=== PATIENT | male | born 2005 | race Caucasian/White ===

== ENCOUNTER 2023-11-17 19:07 | Emergency (ER) | payer BC, SELFPAY ==
[2023-11-17 19:13] VITALS: BP 147/106; BMI 22.1
--- NOTE | 2023-11-17 20:33 | ED.GENMED ---
History of Present Illness
General
Chief Complaint: Self Inflicted Injury
Source: patient and family
Time Seen by Provider: 11/17/23 19:25
Travel History
Have you had any contact with someone who has COVID-19?: No
Do you have any symptoms of coronavirus? Fever > 100 degrees, chills, cough, shortness of breath, sore throat, loss of taste or smell, muscle aches, or headache?: No
History of Present Illness
History of Present Illness:
18-year-old male presents to the emergency room for evaluation after a suicide attempt. Patient states that he attempted to commit suicide by hanging. He tied a noose with a shoestring which was attached to a ceiling fan. Patient was standing and
then squatted down to strangle himself. After a couple minutes he stood up. He denies loss of consciousness. He does have discomfort in the area where the noose was around his neck.
Phy Exam
Physical Exam
Physical Exam:
General: Awake, Alert, Oriented X3. No acute distress.
Vitals: unremarkable
Head: Atraumatic
Eyes: Pupils equal, EOMI
Throat: Airway intact, no exudates, no stridor
Neck: Trachea midline, no crepitance, ligature paulie noted around his neck
Lungs: Clear and equal b/l
Heart: Regular rate, no murmurs
Abd: Soft, Nontender, No pulsatile mass
Neuro: Nonfocal
Skin: Warm, dry, no rash
Extremities: pulses equal b/l, no edema
Course
Orders/Labs/Results
Orders:
Orders
11/17/23 19:20
Case Management Consult ONCE
Case Management Consult: Suicide Risk
11/17/23 19:51
Crisis Consult Urgent
Reason for Consult: suicide attempt
11/17/23 20:30
CT Angio Neck W/Wo Iv Contrast [CT Neck Angio W/wo Iv Contrast] Urgent
Comment:
Reason For Exam: suicide attempt by hanging
11/17/23 20:41
Acetaminophen Urgent
Alcohol Urgent
Complete Blood Count/No Diff Urgent
Comprehensive Metabolic Panel Urgent
Salicylate Urgent
11/17/23 20:55
Fentanyl, Urine Urgent
Urine Drug Abuse Screen Urgent
Date Specimen was Collected: 11/17/23
Time Specimen was Collected: 20:51
Abnormal Lab Results
11/17/23 11/17/23
20:41 20:55
MPV 10.7 H fL
(7.4-10.4)
BUN 6 L mg/dl
(9-20)
Salicylates < 1.0 L mg/dl
(2.0-20.0)
Acetaminophen < 10 L ug/ml
(10-30)
U Benzodiazepines Scrn Positive H
(Negative)
11/17/23 20:41
11/17/23 20:41
Vital Signs
Initial and Last Documented VS:
Initial Vital Signs
Temp Pulse Resp BP Pulse Ox
98 F 122 16 147/106 99
11/17/23 19:13 11/17/23 19:13 11/17/23 19:13 11/17/23 19:13 11/17/23 19:13
Last Documented Vital Signs
Temp Pulse Resp BP Pulse Ox
98 F 122 16 147/106 99
11/17/23 19:13 11/17/23 19:13 11/17/23 19:13 11/17/23 19:13 11/17/23 19:13
MDM/Problems Addressed
Differential Diagnosis Includes:
Vascular injury, tracheal injury, hyoid fracture
MDM/Problems Addressed:
CT of the neck is unremarkable. Labs are normal. Patient is medically cleared for psychiatric treatment
*Radiology
Radiology exam reviewed: radiology read reviewed
*Pulse Oximetry
Patient hypoxic: no
*Critical Care Note
Total Time (30-74mins, 75-104mins- exclusive of procedures): Not Applicable
ED Attending Note
-
Portions of this chart may have been created with voice recognition software.� Occasional wrong word or��sound alike� substitutions may have occurred due to the inherent limitations of voice recognition software.
Discharge Plan
Departure
Patient Disposition: Psych Facility
Date of Disposition: 11/17/23
Time of Disposition: 22:02
Condition: Fair
Discharge Problem:
Suicidal ideation, Suicide attempt by hanging, Depression
Prescriptions:
No Action
fluoxetine [Prozac] 20 mg Capsule
20 mg PO DAILY
Referrals:
NONE,* [Family Provider] -
Activity Restrictions/Additional Instructions:
Patient is medically clear for psychiatric treatment
Interventions
Interventions:
*Risk Screen - Suicide Last Done: 11/17/23 19:13
*General Assessment Last Done: 11/17/23 19:13
*Neglect/Abuse Screening Last Done: 11/17/23 19:13
*ED COVID-19 Vaccine History Last Done: 11/17/23 19:13
*Nursing Disposition Last Done: 11/17/23 22:17
ED-Skin Assessment Last Done: 11/17/23 20:19
Discharge Date and Time
Discharge Date/Time: 11/17/23 22:18
[2023-11-17 20:50] LABS: Hematocrit 45.2 % (39.0-52.0); Hemoglobin 16.3 g/dL (13.0-18.0); Mean Corp Hgb Conc. 36.1 g/dL (33.0-37.0); Mean Corpuscular Hgb 30.1 pg (27.0-31.0); Mean Corpuscular Volume 83.4 fL (80.0-94.0); Mean Platelet Volume 10.7 fL (7.4-10.4); Platelet Count 241 10^3/uL (130-400); Red Blood Cell Count 5.42 10^6/uL (4.70-6.10); White Blood Cell Count 5.3 10^3/uL (4.8-10.8)
[2023-11-17 21:07] LABS: ALT (SGPT) 24 U/L (0-50); AST (SGOT) 28 U/L (17-59); Acetaminophen < 10 ug/ml (10-30); Albumin 4.7 g/dl (3.5-5.0); Alkaline Phosphatase 67 U/L (38-126); Blood Urea Nitrogen 6 mg/dl (9-20); Calcium 9.3 mg/dl (8.4-10.2); Carbon Dioxide 24 mmol/L (22-30); Estimated Creatinine Clearance > 125 ml/min; Glucose 79 mg/dl (70-99); Salicylate < 1.0 mg/dl (2.0-20.0); Total Bilirubin 0.7 mg/dl (0.2-1.3); Total Protein 7.6 g/dl (6.3-8.2); eGFR > 60.00
[2023-11-17 21:09] LABS: Alcohol None Detected
[2023-11-17 21:42] LABS: Amphetamines Negative (Negative)
[2023-11-17 21:42] LABS: Chloride 103 mmol/L (98-107); Potassium 4.2 mmol/L (3.5-5.1); Sodium 137 mmol/L (135-145)
[2023-11-17 21:43] LABS: Barbiturates Negative (Negative); Benzodiazepines Positive (Negative); Buprenorphine Negative (Negative); Cocaine Negative (Negative); Marijuana Negative (Negative); Methadone Negative (Negative); Methamphetamines Negative (Negative); Opiates Negative (Negative); Phencyclidine Negative (Negative); Tricyclic Antidepressants Negative (Negative)
[2023-11-17 22:07] LABS: Fentanyl, Urine Negative (Negative)
== END 2023-11-17 22:18 ==
LOC: EMR 19:07
PROVIDERS: EMERGENCY PHYSICIAN Emergency Medicine
DX: T14.91XA Suicide attempt, initial encounter (principal); F32.A Depression, unspecified; X83.8XXA Intentional self-harm by other specified means, initial encounter; Y92.9 Unspecified place or not applicable
CPT/HCPCS: 99285; 70498; 80053; 80143; 80179; 80306; 80307; 82077; 85027; Q9967